=== PATIENT | female | born 1950 | race Caucasian/White ===

== ENCOUNTER 2024-10-23 13:13 | Emergency (ER) | payer MEDICARE, OTHER, SELFPAY ==
[2024-10-23 13:14] VITALS: BP 125/76; PULSE 77; RESP 18; TEMP 36.4; O2SAT 97; BMI 23.1
--- NOTE | 2024-10-23 14:18 | CT_ITS ---
PROCEDURE: ABDOMEN/PELVIS W IV CONT ONLY, 10/23/2024 REASON FOR EXAM: LLQ ABD PAIN TECHNIQUE: CT abdomen and pelvis was performed with IV contrast. Multiplanar reformats were generated. CONTRAST: Isovue-300 VOLUME: 94mL RADIATION DOSE SUMMARY: CTDlvol: 6.65+ 13.35 mGy DLP: 657.23 mGycm One or more dose reduction techniques were used (e.g., Automated exposure control, adjustment of the mA and/or kV according to patient size, use of iterative reconstruction technique). COMPARISON: None FINDINGS: Lung bases: Mild atelectasis/scarring small hiatal. Hernia containing fat. Trace mitral annular calcification. Liver: Subjectively high-density 0.9 cm subcapsular lesion along the posterior aspect of the RIGHT lobe is too small to definitively characterize. Spleen: Unremarkable. Gallbladder: Unremarkable. Pancreas: Unremarkable. Adrenals: Unremarkable. Kidneys: Punctate 1-2 mm nonobstructing intrarenal calculus on the LEFT.. Bowel: Advanced diverticulosis. Question trace stranding along the junction of the descending colon in the sigmoid normal caliber appendix. Lymph nodes: Unremarkable. Vasculature: Mild/moderate atherosclerosis.. Peritoneum: Unremarkable. Bladder: Underdistended and suboptimally evaluated, grossly unremarkable. Reproductive Organs: Unremarkable. Body Wall: Tiny fat containing umbilical hernia.. Bones: Demineralization. Multilevel spondylosis. Mild thoracolumbar dextroscoliosis could be positional. Bony expansion of the RIGHT S2 foramen 21.8 x 2.5 cm containing fluid attenuating material. CT/Abdomen/Pelvis W IV Cont ONLY IMPRESSION: 1. Diverticulosis with questionable trace acute diverticulitis versus changes r elated to prior diverticulitis along the junction of the descending colon and sigmoid. Correlate with history and presentation. No abscess. 2. Expansion of the RIGHT S2 neural foramen with central fluid attenuation. Fi ndings are indeterminate and could reflect an unusual appearance of a prominent sacral Tarlov cyst versus a peripheral nerve sheath tumor or other lesion. Recommend outpatient MRI pelvis with and without contrast. Comparison with any available outside imaging may also be helpful. 3. Tiny 0.9 cm indeterminate hepatic lesion is too small to definitively charac terize by CT but subjectively does not appear compatible with a cyst. Hemangioma or other lesion is possible. Correlate wit h medical history and compare with any available outside imaging to establish stability. If unavailable, recommend outpatient m ultiphase hepatic protocol MRI with and without contrast in 3 months to evaluate short-term stability and further delineate. N ote that definitive characterization may be challenging due to tiny size, particularly if the patient is unable to suspend respiration. 4. Additional description as above. Reading Location: [id number]
[2024-10-23] MEDS: 0.9% Normal Saline (1000mL) 1,000 ML 999 ML IV (14:27)
--- NOTE | 2024-10-23 14:34 | ED.VIS.GI ---
HPI HPI - GI History of Present Illness Chief Complaint: Abd Pain Informant: patient Narrative Narrative: Patient 74-year-old female with history of colonic polyps on routine screening colonoscopies presenting with left lower quadrant abdominal discomfort as well as nausea and daily diarrhea. Patient states 5 days ago (last Wednesday) she thought she had food poisoning. She ate lunch and after that had shaking chills. She had nausea but no vomiting. 2 days later she developed diarrhea. She states every morning since then she has had rosmery diarrhea that is just like liquid. Denies any black or blood in her stool. Show she is not even passing gas. Denies any fever. Denies urinary symptoms. Notes she just feels a little woozy and foggy. Also notes for the past few days has been having particularly bad leg cramps in her calfs and her feet. She has an abdominal surgical history including tubal ligation. She notes 5 to 6 weeks ago she did have a bad respiratory illness that took her about 2 weeks to get over. She denies any recent antibiotics. Denies any history of C. difficile. Went to urgent care today who recommended she come to the ER. Denies any known history of diverticulitis or kidney stones. No other complaints or concerns reported at this time. PFSH PFSH Home Medications ?Medication ?Instructions ?Recorded ?Last Taken ?Type cefdinir 300 mg capsule 300 mg PO BID #10 caps 10/23/24 Unknown Rx ibuprofen 200 mg tablet (Advil) 400 mg PO Q8H PRN pain 10/23/24 Unknown History lactulose 10 gram/15 mL oral 10 g PO .COMPLEX 10/23/24 10/16/24 History solution (Enulose) Allergy/AdvReac Type Severity Reaction Status Date / Time No Known Allergies Allergy Verified 10/23/24 13:14 Social History Smoking Status: Never smoker ROS ROS ED Constitutional Constitutional ED: Reports chills; Denies fever(s) Cardiovascular Cardiovascular: Denies chest pain Respiratory/Chest Respiratory/Chest: Denies cough or dyspnea Gastrointestinal Gastrointestinal: Reports abdominal pain, diarrhea and nausea; Denies melena or vomiting Genitourinary Genitourinary ED: Denies dysuria or hematuria Musculoskeletal Musculoskeletal: Reports other Details: Leg cramping ; Denies arthralgias or myalgias Integumentary Denies rash Neurologic Neurologic: Denies weakness Hematologic/Lymphatic Hematologic/Lymphatic: Denies easy bleeding or easy bruising EXAM Physical Exam Const Vital Signs: 10/23/24 13:14 10/23/24 15:13 Temperature 97.5 F L Temperature Source Oral Pulse Rate 77 74 Respiratory Rate 18 16 Blood Pressure 125/76 H 129/64 H Blood Pressure Mean 92 85 Pulse Ox 97 97 Oxygen Delivery Method Room Air Positive well nourished and well developed General Appearance ED: well developed and NAD; Negative for pallor HEENT Reports dry mucous membranes Mouth ED: Yes dry mucous membranes Mouth: dry mucous membranes Eyes PERRL Neck supple Resp normal respiratory effort and clear to auscultation bilaterally Cardio regular rate and regular rhythm Cardio Narrative: 2+ DP pulses present GI Auscultation: hypoactive bowel sounds Palpation: soft and tender LLQ; Negative for guarding or rigid Back/Spine no CVA tenderness Extremity full ROM Neuro Sensorium / Orientation: alert Motor Exam: Negative for general weakness Psych mental status grossly normal and thought process normal Skin no wounds General Skin Exam: Negative for jaundice or pallor MDM MDM MDM Narrative Medical decision making narrative: Patient evaluated for 1 week of nausea that then progressed to diarrhea. She has some mild pain in the left lower quadrant with deep palpation. Did have an episode of chills. No she just not feeling right. Differential clues diverticulitis, urinary tract infection, renal colic, Electrolyte derangement and MONI. Patient is given IV fluids in the emergency room. CBC is normal with no leukocytosis. BMP is normal with no MONI or significant electrolyte abnormalities specifically her magnesium and potassium are normal. Urinalysis is concerning for urinary tract infection with 500 leukocyte esterase, 10-25 white blood cells and 1+ bacteria. There is some slight cast as well. Urine culture sent. CT of abdomen and pelvis shows diverticulosis with questionable trace acute diverticulitis versus changes related to prior diverticulitis. There is also incidental finding of abnormality of the right S2 neural foramen which does not seem to be related to her acute presentation today. Given that she has had week of symptoms with no fever, significant tenderness or leukocytosis lower suspicion for acute diverticulitis. Will treat conservatively with bowel rest/liquid diet and NSAIDs at this time but will treat UTI with cefdinir which does have coverage for intra-abdominal infection. Patient is agreeable with this. Is given close return precautions and counseled that we are not fully treating for acute diverticulitis so she does have worsening of her abdominal pain, develop fever or other progression of symptoms she will need repeat evaluation. She verbalized agreement understand with this. Is given first dose of cefdinir in the ER. Urine cultures pending. Discharged home in stable condition. Lab Data Labs: Laboratory Results - last 24 hr 10/23/24 10/23/24 14:00 14:35 WBC 5.4 RBC 4.35 Hgb 14.7 Hct 42.7 MCV 98.2 MCH 33.8 H MCHC 34.4 RDW Std Deviation 44.9 H RDW Coeff of Vaishali 12.4 Plt Count 195 MPV 9.4 Immature Gran % (Auto) 0.700 Neut % (Auto) 47.1 Lymph % (Auto) 32.0 [place] % (Auto) 15.1 H Eos % (Auto) 4.4 Baso % (Auto) 0.7 Absolute Neuts (auto) 2.6 Absolute Lymphs (auto) 1.74 Nucleated RBC % 0 Reactive Lymphocytes RARE Sodium 136 Potassium 4.1 Chloride 105 Carbon Dioxide 20.5 L Anion Gap 11 BUN 24 H Creatinine 1.07 Estim Creat Clear Calc 42.53 L Est GFR (MDRD) Non-Af 54 L BUN/Creatinine Ratio 22.8 H Glucose 93 Calcium 10.1 Magnesium 1.9 Urine Color Yellow Urine Clarity Clear Urine pH 5.0 Ur Specific [place] 1.020 Urine Protein 30 H Urine Glucose (UA) Normal Urine Ketones 5 H Urine Occult Blood Negative Urine Nitrite Negative Urine Bilirubin 1 H Urine Urobilinogen 1 H Ur Leukocyte Esterase 500 H Urine RBC 0 SEEN Urine WBC 10-25 SEEN Ur Squamous Epith Cells 0-5 SEEN Urine Bacteria 1+ Hyaline Casts 0-5 SEEN Urine Mucus 0 SEEN Radiography Diagnostic Testing: Clinical Impression(s) from Imaging Studies Abdomen/Pelvis CT 10/23/24 14:18 IMPRESSION: 1. Diverticulosis with questionable trace acute diverticulitis versus changes related to prior diverticulitis along the junction of the descending colon and sigmoid. Correlate with history and presentation. No abscess. 2. Expansion of the RIGHT S2 neural foramen with central fluid attenuation. Findings are indeterminate and could reflect an unusual appearance of a prominent sacral Tarlov cyst versus a peripheral nerve sheath tumor or other lesion. Recommend outpatient MRI pelvis with and without contrast. Comparison with any available outside imaging may also be helpful. 3. Tiny 0.9 cm indeterminate hepatic lesion is too small to definitively characterize by CT but subjectively does not appear compatible with a cyst. Hemangioma or other lesion is possible. Correlate with medical history and compare with any available outside imaging to establish stability. If unavailable, recommend outpatient multiphase hepatic protocol MRI with and without contrast in 3 months to evaluate short-term stability and further delineate. Note that definitive characterization may be challenging due to tiny size, particularly if the patient is unable to suspend respiration. 4. Additional description as above. Reading Location: [id number] Discharge Plan Triage Chief Complaint: Abd Pain ED Provider: Liz Lundy Dx/Rx/DC Orders Instructions: Diverticulosis and Diverticulitis, ED UTIs Women Prescriptions: New cefdinir 300 mg capsule 300 mg PO BID Qty: 10 0RF No Action lactulose [Enulose] 10 gram/15 mL solution 10 g PO .COMPLEX Rx Instructions: 10 grams orally 3XW; ibuprofen [Advil] 200 mg tablet 400 mg PO Q8H PRN (Reason: pain) Primary Care Provider: Viji Sanches Referrals: Viji Sanches DO [Primary Care Provider] - Activity Restrictions/Additional Instructions: Your lab work today was largely normal. Your urinalysis did show findings consistent with urinary tract infection. Your CT showed findings as well as very mild diverticulitis versus recent diverticulitis that is recovering. We are treating you for the urinary tract infection and will treat the diverticulitis conservatively this time with pain control (ibuprofen or Tylenol) and bowel rest. This means a full liquid diet for 24 to 48 hours until this is improving. Please follow-up close with your primary care doctor. When you are feeling better it is good to stick to a high-fiber diet. If you develop worsening symptoms including worsening pain or fever please return to the emergency room. Print Language: Barb[place] Disposition Disposition: Home, Self Care
[2024-10-23 14:36] LABS: Absolute Lymphocyte Count 1.74 X10^3/uL (0.83-4.51); Absolute Neutrophil Count 2.6 X10^3/uL (2.0-7.7); Basophil# 0.04 X10^3/uL; Basophil% 0.7 % (0-1); Eosinophil# 0.24 X10^3/uL; Eosinophils% 4.4 % (0-5); Hematocrit 42.7 % (37-47); Hemoglobin 14.7 g/dL (12.0-15.0); Lymphocyte # 1.74 X10^3/ul (0.83-4.51); Mean Corp Hgb Conc 34.4 g/dL (32-36); Mean Corpuscular Hgb 33.8 pg (27.0-32.0); Mean Corpuscular Volume 98.2 fL (81-99); Mean Platelet Vol. 9.4 fl (6.2-12.0); Monocyte# 0.82 X10^3/uL; Monocyte% 15.1 % (0-10); NRBC Flagged by Analyzer 0 % (0-5); Neutrophil # 2.56 X10^3/uL (2.7-7.7); Neutrophil % 47.1 % (47-70); POSITIVE MORPHOLOGY YES; Platelet Count 195 K/mm3 (150-450); RBC Distribution Width CV 12.4 % (11.6-14.6); RBC Distribution Width SD 44.9 fl (35.1-43.9); Red Blood Count 4.35 M/mm3 (4.2-5.4); White Blood Count 5.4 K/mm3 (4.4-11.0)
[2024-10-23 14:42] LABS: Differential Indicated SCAN CRITERIA MET
[2024-10-23 14:46] LABS: Mucous, Urine 0 SEEN /hpf (<or=2+); Red Blood Cells-Urine 0 SEEN /hpf (0-5)
[2024-10-23 14:59] LABS: Color, Urine Yellow (Yellow); Glucose, Dipstick Normal (Normal); Ketone-Dipstick 5 mg/dl (Negative); Leukocyte Esterase-Dipstick 500 /ul (Negative); Nitrite-Dipstick Negative (Negative); Occult Blood-Urine Negative /ul (Negative); Protein-Dipstick 30 mg/dl (Negative); Urine Clarity Clear (Clear); Urine Urobilinogen 1 mg/dl (Normal)
[2024-10-23 15:08] LABS: Urine Bilirubin Dipstick 1 mg/dL (Negative)
[2024-10-23 15:09] LABS: Anion Gap 11 (5-15); BUN 24 mg/dL (4-19); BUN/Creat Ratio 22.8 RATIO (10-20); Calcium,Total 10.1 mg/dL (7.6-11.0); Carbon Dioxide 20.5 mmol/L (21.0-32.0); Chloride 105 mmol/L (98-108); Creatinine, Serum 1.07 mg/dL (0.70-1.20); EST Glomerular Filtration Rate 54 (>60); Estimated Creatinine Clearance 42.53 ml/min (50-250); Glucose 93 mg/dL (70-99); Magnesium 1.9 mg/dL (1.5-2.2); Potassium 4.1 mmol/L (3.3-5.1); Sodium Level 136 mmol/L (133-145)
[2024-10-23 15:13] VITALS: BP 129/64; PULSE 74; RESP 16; O2SAT 97
[2024-10-23 15:26] LABS: Squamous Epithelial Cells - UA 0-5 SEEN /hpf (5-10); White Blood Cells 10-25 SEEN /hpf (0-5)
[2024-10-23 15:29] LABS: Bacteria 1+ /hpf (None Seen)
[2024-10-23 15:30] LABS: Hyaline Cast 0-5 SEEN /lpf (0-5)
[2024-10-23 16:07] LABS: Reactive Lymphocyte RARE
[2024-10-23] MEDS: Cefdinir 300 MG Capsule PO (16:56)
[2024-10-23 17:01] VITALS: BP 126/78; PULSE 69; RESP 16; TEMP 36.6; O2SAT 99
== END 2024-10-23 17:01 | disposition home or self-care (01) ==
PROVIDERS: Emergency Provider Emergency Medicine; PCP Family Medicine; Visit Provider Emergency Medicine
DX: N39.0 Urinary tract infection, site not specified (principal); K57.32 Diverticulitis of large intestine without perforation or abscess without bleeding
CPT/HCPCS: 74177; 80048; 81001; 83735; 85025; 87086; 96360; 96361; 99283; Q9967; A4216